=== PATIENT | male | born 1995 | race Caucasian/White ===

== ENCOUNTER 2018-04-21 09:09 | Emergency (ER) | payer SELFPAY ==
[2018-04-21 10:01] LABS: Basophils # (Auto) 0.1 K/mm3 (0.0-0.1); Basophils % (Auto) 0.6 % (0.0-1.8); Eosinophils % (Auto) 0.3 % (0.0-4.3); Hemoglobin 16.3 gm/dl (11.8-15.2); Lymphocytes % (Auto) 18.5 % (13.4-35.0); Mean Corpuscular HGB Conc 34 % (32-34); Mean Corpuscular Hemoglobin 31 pg (28-32); Mean Corpuscular Volume 90 fl (84-94); Monocytes # (Auto) 1.2 K/mm3 (0.0-0.8); Monocytes % (Auto) 10.9 % (0.0-7.3); Platelet Count 306 K/mm3 (140-440); Red Blood Count 5.34 M/mm3 (3.65-5.03); Red Cell Distribution Width 12.9 % (13.2-15.2)
[2018-04-21] MEDS ORDERED: GEODON IM ONE (10:10)
[2018-04-21] MEDS ORDERED: WATER FOR INJ (PF) ONE ×2 (10:10→21:56)
--- NOTE | 2018-04-21 10:17 | Emergency Department Report ---
ED Psych HPI - General Chief Complaint: Psych Stated Complaint: BI-POLAR Time Seen by Provider: 04/21/18 10:12 Source: EMS Mode of arrival: Stretcher - History of Present Illness Initial Comments: Patient brought in by EMS for psychiatric evaluation, with symptoms of acute psychosis. No prior history is obtainable, no family members are with patient, and although patient is awake, in no acute distress, he is speaking nonstop and a complete word salad, makes no semblance of appropriate response to any questions, and no meaningful interview can be performed. No prior visits are available for review at this hospital, and there is insufficient information on which to conduct initial evaluation. Patient is clearly of altered mental status, likely psychotic, but will be evaluated for underlying organic illness, or causes of acute dementia, including infectious origin. Laboratory evaluation has been ordered, and patient was sedated for purposes of comfort, and ability to perform further secondary evaluation and exam. - Related Data Allergies Allergy/AdvReac Type Severity Reaction Status Date / Time Unable to Assess Allergy Unverified 04/21/18 09:21 ED Review of Systems ROS: Stated complaint: BI-POLAR Other details as noted in HPI ED Past Medical Hx - Past Medical History Previous Medical History?: No Additional medical history: unattainable - Surgical History Past Surgical History?: No Additional Surgical History: unattainable - Social History Smoking Status: Unknown if ever smoked ED Physical Exam - General Limitations: Other General appearance: alert, other (physically and emotionally agitated at arrival , much more compliant and organized after sedation) - Head Head exam: Present: atraumatic, normocephalic - Eye Eye exam: Present: PERRL, EOMI (conjugate). Absent: nystagmus - ENT ENT exam: Present: mucous membranes moist - Neck Neck exam: Present: normal inspection, full ROM. Absent: tenderness, meningismus - Respiratory Respiratory exam: Present: normal lung sounds bilaterally. Absent: respiratory distress, wheezes, rales, rhonchi, chest wall tenderness - Cardiovascular Cardiovascular Exam: Present: regular rate, normal heart sounds - GI/Abdominal GI/Abdominal exam: Present: soft, normal bowel sounds. Absent: tenderness - Rectal Rectal exam: Present: deferred - Extremities Exam Extremities exam: Present: normal inspection, full ROM. Absent: tenderness, pedal edema - Back Exam Back exam: Present: normal inspection - Neurological Exam Neurological exam: Present: alert, other (acutely psychotic, moves all extremities well, normal balance, normal gait). Absent: oriented X3 - Psychiatric Psychiatric exam: Present: manic (agitated, very tangential, pressured speech, word salad, no relationship to interviewer questions) - Skin Skin exam: Present: warm, dry, intact ED Course Vital Signs 04/21/18 04/21/18 09:21 10:33 Temperature 37.7 C H 37.5 C Pulse Rate 105 H 79 Respiratory 17 20 Rate Blood Pressure 123/90 Blood Pressure 130/75 [Left] O2 Sat by Pulse 96 100 Oximetry - Reevaluation(s) Reevaluation #1: 04/21/18 14:29 Patient is resting comfortably, and is currently asymptomatic, and appears much calmer, and during physical examination, is able to converse in a much more arise fashion, known his name, knows that he is in a hospital, gives a very vague and somewhat evasive history of immediately preceding events, which is not understandable to me, but knows it is April, reports the year is 2018, and knows that [facility] is the president. This is a significant improvement from arrival, in which he was so disoriented, that he could not respond in any meaningful way. Physical examination is unremarkable, essentially normal and all system and organ areas, but laboratory evaluation shows a significant elevation of creatine kinase, 1344, but urine is normal. He could be in early stages of rhabdomyolysis, but my baseline suspicion is that he is simply dehydrated, has probably been using some drugs of abuse, and that with his agitation, has produced a mild CK increase. Nonetheless, patient although been physically stable, is not yet medically cleared for psychiatric placement, as I would like to see a repeat stable creatine kinase without signs of kidney injury, or spillage of myoglobin. Patient will have a repeat urinalysis and creatine kinase at 1800 hrs., and results will be followed by Dr. Abel Dumas. ED Medical Decision Making - Lab Data Result diagrams: 04/21/18 09:37 04/21/18 09:37 Initial creatine kinase elevated at 1300, baseline urinalysis is negative for spillage of hemoglobin myoglobin. Critical care attestation.: If time is entered above; I have spent that time in minutes in the direct care of this critically ill patient, excluding procedure time. ED Disposition Condition: Stable Referrals: PRIMARY CARE, [Primary Care Provider] - 3-5 Days
[2018-04-21 10:20] LABS: Calcium 9.4 mg/dL (8.4-10.2)
[2018-04-21] MEDS: GEODON IM PRN ×2 (10:27→22:33)
[2018-04-21] MEDS ORDERED: ATIVAN ONE (12:36)
[2018-04-21] MEDS: ATIVAN IM PRN (12:43)
[2018-04-21 13:53] LABS: Mucus,Urine FEW /HPF; RBC,Urine < 1.0 /HPF (0.0-6.0)
[2018-04-21] MEDS ORDERED: NACL 0.9% 1000 ML 1,000 ML IV ONE (13:54)
[2018-04-21] MEDS ORDERED: TYLENOL PO ONE (13:55)
[2018-04-21 13:58] LABS: Bilirubin,Urine NEG (Negative); Blood,Urine NEG (Negative); Color,Urine Yellow (Yellow); Protein,Urine <15 mg/dL mg/dL (Negative); Urobilinogen,Urine < 2.0 mg/dL (<2.0)
[2018-04-21 14:01] LABS: Amphetamine Screen,Urine PRESUMPTIVE NEGATIVE; Benzodiazepines Screen,Urine PRESUMPTIVE NEGATIVE; Cocaine Screen,Urine PRESUMPTIVE NEGATIVE; Methadone Screen,Urine PRESUMPTIVE NEGATIVE; Opiate Screen,Urine PRESUMPTIVE NEGATIVE
[2018-04-21 14:21] LABS: Cannabinoid Screen,Urine PRESUMPTIVE POSITIVE
[2018-04-21 14:59] LABS: INR 0.87 (0.87-1.13)
[2018-04-21 15:00] LABS: Partial Thromboplastin Time 36.1 Sec. (24.2-36.6)
[2018-04-21 15:10] LABS: Alanine Aminotransferase 19 units/L (7-56); Albumin 4.7 g/dL (3.9-5); BUN/Creatinine Ratio 13; Blood Urea Nitrogen 17 mg/dL (9-20); Calcium 9.7 mg/dL (8.4-10.2); Hemolysis Index 7
--- NOTE | 2018-04-21 16:23 | Consultation ---
History of Present Illness - Reason for Consult Consult date: 04/21/18 Reason for consult: Psychiatric Consult Requesting physician: ERICKA PURDY - Chief Complaint Chief complaint: ALTERED MENTAL STATUS - History of Present Psychiatric Illness 22-year-old male was brought to the emergency room via ambulance, after he presented in altered mental status. No previous information is available for this patient and there is also no contact information for any family members. As per his records, at the time of his initial presentation he was disorganized and presented with a word salad. When I met him today, he had received IM Geodon prn medication and so he appeared somewhat tired. However he appeared to be trying to stay awake, and also was moving around in the room, and needed redirection to sit on the bed, since he appeared to be off balance. During the brief interaction with me, patient did appear to be responding to internal stimuli. He also presented as delusional with paranoid undertones. Patient stated "you are covering your right side, which means something bad will happen ". He was a poor historian and was unable to give any further information, with regards to any suicidal or homicidal thoughts or any auditory or visual hallucinations. He did appear to be presenting with flight of ideas and loose associations. Medications and Allergies Allergies Allergy/AdvReac Type Severity Reaction Status Date / Time Unable to Assess Allergy Unverified 04/21/18 09:21 Active Meds: Active Medications Lorazepam (Ativan) 2 mg IM Q1H PRN PRN Reason: Agitation Last Admin: 04/21/18 12:43 Dose: 2 mg Ziprasidone (Geodon) 20 mg IM BID PRN PRN Reason: Agitation Last Admin: 04/21/18 10:27 Dose: 20 mg Past psychiatric history - Past Medical History Past Medical History: other (elevated CK) - past Psychiatric treatment and history psychiatric treatment history: Patient was unable to provide any information about his past psychiatric history at this time. - Social History Social history: lives with family (patient stated that he lives with his grandmother.) Mental Status Exam - Vital signs Last Vital Signs Temp 99.5 F 04/21/18 10:33 Pulse 79 04/21/18 10:33 Resp 20 04/21/18 10:33 BP 130/75 04/21/18 10:33 Pulse Ox 100 04/21/18 10:33 - Exam Orientation: place Affect: agitated Mood: other (dysphoric) Thought content: delusions, paranoia Thought Process: Loose Associations, Flight of Ideas, Disorganized Perceptions: other (patient did not answer) Speech: slurring Concentration: distractible, unable to pay attention Motor activity: restless Level of consciousness: sedated Sleep Symptoms: Difficulty Falling Asleep Interaction: irritable Results Result Diagrams: 04/21/18 09:37 04/21/18 14:34 Abnormal lab results 04/21/18 04/21/18 04/21/18 Range/Units 09:37 09:37 09:37 RBC 5.34 H (3.65-5.03) M/mm3 Hgb 16.3 H (11.8-15.2) gm/dl Hct 48.0 H (35.5-45.6) % RDW 12.9 L (13.2-15.2) % [place] % (Auto) 10.9 H (0.0-7.3) % [place] # 1.2 H (0.0-0.8) K/mm3 Glucose (75-100) mg/dL AST (5-40) units/L Total Creatine Kinase (55-170) units/L Salicylates < 0.3 L (2.8-20.0) mg/dL Acetaminophen < 5.0 L (10.0-30.0) ug/mL 04/21/18 04/21/18 Range/Units 09:37 14:34 RBC (3.65-5.03) M/mm3 Hgb (11.8-15.2) gm/dl Hct (35.5-45.6) % RDW (13.2-15.2) % [place] % (Auto) (0.0-7.3) % [place] # (0.0-0.8) K/mm3 Glucose 124 H (75-100) mg/dL AST 47 H (5-40) units/L Total Creatine Kinase 1344 H (55-170) units/L Salicylates (2.8-20.0) mg/dL Acetaminophen (10.0-30.0) ug/mL All other labs normal. Assessment and Plan Assessment and plan: Assessment: 1) psychosis unspecified Plan: 1) Patient will continue on 1013 and he does not appear to be capable of taking care of himself at this time and also presenting with psychotic symptoms. 2) Attempts will be made to obtain collateral information with regards to the patient's baseline. 3) Will start patient on Zyprexa 5 mg at bedtime to help with most ablation and psychosis. 4) Will closely monitor patient's CK levels which is elevated and at 1344. If they continue elevated, we'll discontinue his antipsychotic medication. 5) Will continue to follow the patient.
[2018-04-21 18:01] LABS: Bilirubin,Urine NEG (Negative); Blood,Urine NEG (Negative); Color,Urine Yellow (Yellow); Mucus,Urine FEW /HPF; Protein,Urine <15 mg/dL mg/dL (Negative); RBC,Urine < 1.0 /HPF (0.0-6.0); Urobilinogen,Urine < 2.0 mg/dL (<2.0)
[2018-04-22 18:11] LABS: BUN/Creatinine Ratio 11; Blood Urea Nitrogen 9 mg/dL (9-20); Calcium 9.9 mg/dL (8.4-10.2); Hemolysis Index 7
--- NOTE | 2018-04-22 19:12 | Event Note ---
Date: 04/22/18 Laboratory studies are reviewed. Creatinine kinase is down trending. Patient' s creatinine kinase level does not meet definition criteria of rhabdomyolysis. His renal function remains intact, and his muscular compartments are soft. His creatinine kinase will continue to down trend on its own, by merit of normal expected human physiology and copious oral hydration which we will encourage. At this point in time, there does not appear to be an immediate medical contraindication to psychiatric admission, evaluation and consultation. I would avoid medications such as Haldol and Geodon, which may predispose to elevations of creatinine kinase levels. Vital Signs 04/21/18 04/21/18 04/21/18 09:21 10:33 21:40 Temperature 99.8 F H 99.5 F 97.5 F L Pulse Rate 105 H 79 95 H Respiratory 17 20 20 Rate Blood Pressure 123/90 Blood Pressure 130/75 127/95 [Left] O2 Sat by Pulse 96 100 99 Oximetry 04/22/18 04/22/18 05:59 08:12 Temperature 97.5 F L 98.4 F Pulse Rate 90 Respiratory 16 Rate Blood Pressure Blood Pressure 130/82 [Left] O2 Sat by Pulse 99 Oximetry Lab Results 04/21/18 04/21/18 04/21/18 Range/Units 09:37 09:37 09:37 WBC (4.5-11.0) K/mm3 RBC (3.65-5.03) M/mm3 Hgb (11.8-15.2) gm/dl Hct (35.5-45.6) % MCV (84-94) fl MCH (28-32) pg MCHC (32-34) % RDW (13.2-15.2) % Plt Count (140-440) K/mm3 Lymph % (Auto) (13.4-35.0) % [place] % (Auto) (0.0-7.3) % Eos % (Auto) (0.0-4.3) % Baso % (Auto) (0.0-1.8) % Lymph # (1.2-5.4) K/mm3 [place] # (0.0-0.8) K/mm3 Eos # (0.0-0.4) K/mm3 Baso # (0.0-0.1) K/mm3 Seg Neutrophils % (40.0-70.0) % Seg Neutrophils # (1.8-7.7) K/mm3 PT (12.2-14.9) Sec. INR (0.87-1.13) APTT (24.2-36.6) Sec. Sodium 138 (137-145) mmol/L Potassium 4.3 (3.6-5.0) mmol/L Chloride 98.9 (98-107) mmol/L Carbon Dioxide 25 (22-30) mmol/L Anion Gap 18 mmol/L BUN 20 (9-20) mg/dL Creatinine 1.5 (0.8-1.5) mg/dL Estimated GFR 59 ml/min BUN/Creatinine Ratio 13 % Glucose 88 (75-100) mg/dL Lactic Acid (0.7-2.0) mmol/L Calcium 9.4 (8.4-10.2) mg/dL Total Bilirubin (0.1-1.2) mg/dL AST (5-40) units/L ALT (7-56) units/L Alkaline Phosphatase (35-129) units/L Total Creatine Kinase (55-170) units/L Troponin T (0.00-0.029) ng/mL Total Protein (6.3-8.2) g/dL Albumin (3.9-5) g/dL Albumin/Globulin Ratio % TSH (0.270-4.200) mlU/mL Free T4 (0.76-1.46) ng/dL Urine Color (Yellow) Urine Turbidity (Clear) Urine pH (5.0-7.0) Ur Specific [place] (1.003-1.030) Urine Protein (Negative) mg/dL Urine Glucose (UA) (Negative) mg/dL Urine Ketones (Negative) mg/dL Urine Blood (Negative) Urine Nitrite (Negative) Ur Reducing Substances Urine Bilirubin (Negative) Urine Ictotest Urine Urobilinogen (<2.0) mg/dL Ur Leukocyte Esterase (Negative) Urine WBC (Auto) (0.0-6.0) /HPF Urine RBC (Auto) (0.0-6.0) /HPF Urine Mucus /HPF Salicylates < 0.3 L (2.8-20.0) mg/dL Urine Opiates Screen Urine Methadone Screen Acetaminophen < 5.0 L (10.0-30.0) ug/mL Ur Barbiturates Screen Ur Phencyclidine Scrn Ur Amphetamines Screen U Benzodiazepines Scrn Urine Cocaine Screen U Marijuana (THC) Screen Drugs of Abuse Note Plasma/Serum Alcohol (0-0.07) % 04/21/18 04/21/18 04/21/18 Range/Units 09:37 09:37 09:37 WBC 10.7 (4.5-11.0) K/mm3 RBC 5.34 H (3.65-5.03) M/mm3 Hgb 16.3 H (11.8-15.2) gm/dl Hct 48.0 H (35.5-45.6) % MCV 90 (84-94) fl MCH 31 (28-32) pg MCHC 34 (32-34) % RDW 12.9 L (13.2-15.2) % Plt Count 306 (140-440) K/mm3 Lymph % (Auto) 18.5 (13.4-35.0) % [place] % (Auto) 10.9 H (0.0-7.3) % Eos % (Auto) 0.3 (0.0-4.3) % Baso % (Auto) 0.6 (0.0-1.8) % Lymph # 2.0 (1.2-5.4) K/mm3 [place] # 1.2 H (0.0-0.8) K/mm3 Eos # 0.0 (0.0-0.4) K/mm3 Baso # 0.1 (0.0-0.1) K/mm3 Seg Neutrophils % 69.7 (40.0-70.0) % Seg Neutrophils # 7.5 (1.8-7.7) K/mm3 PT (12.2-14.9) Sec. INR (0.87-1.13) APTT (24.2-36.6) Sec. Sodium (137-145) mmol/L Potassium (3.6-5.0) mmol/L Chloride (98-107) mmol/L Carbon Dioxide (22-30) mmol/L Anion Gap mmol/L BUN (9-20) mg/dL Creatinine (0.8-1.5) mg/dL Estimated GFR ml/min BUN/Creatinine Ratio % Glucose (75-100) mg/dL Lactic Acid (0.7-2.0) mmol/L Calcium (8.4-10.2) mg/dL Total Bilirubin (0.1-1.2) mg/dL AST (5-40) units/L ALT (7-56) units/L Alkaline Phosphatase (35-129) units/L Total Creatine Kinase 1344 H (55-170) units/L Troponin T < 0.010 (0.00-0.029) ng/mL Total Protein (6.3-8.2) g/dL Albumin (3.9-5) g/dL Albumin/Globulin Ratio % TSH (0.270-4.200) mlU/mL Free T4 (0.76-1.46) ng/dL Urine Color (Yellow) Urine Turbidity (Clear) Urine pH (5.0-7.0) Ur Specific [place] (1.003-1.030) Urine Protein (Negative) mg/dL Urine Glucose (UA) (Negative) mg/dL Urine Ketones (Negative) mg/dL Urine Blood (Negative) Urine Nitrite (Negative) Ur Reducing Substances Urine Bilirubin (Negative) Urine Ictotest Urine Urobilinogen (<2.0) mg/dL Ur Leukocyte Esterase (Negative) Urine WBC (Auto) (0.0-6.0) /HPF Urine RBC (Auto) (0.0-6.0) /HPF Urine Mucus /HPF Salicylates (2.8-20.0) mg/dL Urine Opiates Screen Urine Methadone Screen Acetaminophen (10.0-30.0) ug/mL Ur Barbiturates Screen Ur Phencyclidine Scrn Ur Amphetamines Screen U Benzodiazepines Scrn Urine Cocaine Screen U Marijuana (THC) Screen Drugs of Abuse Note Plasma/Serum Alcohol < 0.01 (0-0.07) % 04/21/18 04/21/18 04/21/18 Range/Units 09:37 09:37 10:30 WBC (4.5-11.0) K/mm3 RBC (3.65-5.03) M/mm3 Hgb (11.8-15.2) gm/dl Hct (35.5-45.6) % MCV (84-94) fl MCH (28-32) pg MCHC (32-34) % RDW (13.2-15.2) % Plt Count (140-440) K/mm3 Lymph % (Auto) (13.4-35.0) % [place] % (Auto) (0.0-7.3) % Eos % (Auto) (0.0-4.3) % Baso % (Auto) (0.0-1.8) % Lymph # (1.2-5.4) K/mm3 [place] # (0.0-0.8) K/mm3 Eos # (0.0-0.4) K/mm3 Baso # (0.0-0.1) K/mm3 Seg Neutrophils % (40.0-70.0) % Seg Neutrophils # (1.8-7.7) K/mm3 PT (12.2-14.9) Sec. INR (0.87-1.13) APTT (24.2-36.6) Sec. Sodium (137-145) mmol/L Potassium (3.6-5.0) mmol/L Chloride (98-107) mmol/L Carbon Dioxide (22-30) mmol/L Anion Gap mmol/L BUN (9-20) mg/dL Creatinine (0.8-1.5) mg/dL Estimated GFR ml/min BUN/Creatinine Ratio % Glucose (75-100) mg/dL Lactic Acid 1.00 (0.7-2.0) mmol/L Calcium (8.4-10.2) mg/dL Total Bilirubin (0.1-1.2) mg/dL AST (5-40) units/L ALT (7-56) units/L Alkaline Phosphatase (35-129) units/L Total Creatine Kinase (55-170) units/L Troponin T (0.00-0.029) ng/mL Total Protein (6.3-8.2) g/dL Albumin (3.9-5) g/dL Albumin/Globulin Ratio % TSH 0.875 (0.270-4.200) mlU/mL Free T4 1.45 (0.76-1.46) ng/dL Urine Color (Yellow) Urine Turbidity (Clear) Urine pH (5.0-7.0) Ur Specific [place] (1.003-1.030) Urine Protein (Negative) mg/dL Urine Glucose (UA) (Negative) mg/dL Urine Ketones (Negative) mg/dL Urine Blood (Negative) Urine Nitrite (Negative) Ur Reducing Substances Urine Bilirubin (Negative) Urine Ictotest Urine Urobilinogen (<2.0) mg/dL Ur Leukocyte Esterase (Negative) Urine WBC (Auto) (0.0-6.0) /HPF Urine RBC (Auto) (0.0-6.0) /HPF Urine Mucus /HPF Salicylates (2.8-20.0) mg/dL Urine Opiates Screen Urine Methadone Screen Acetaminophen (10.0-30.0) ug/mL Ur Barbiturates Screen Ur Phencyclidine Scrn Ur Amphetamines Screen U Benzodiazepines Scrn Urine Cocaine Screen U Marijuana (THC) Screen Drugs of Abuse Note Plasma/Serum Alcohol (0-0.07) % 04/21/18 04/21/18 04/21/18 Range/Units 13:36 13:36 14:34 WBC (4.5-11.0) K/mm3 RBC (3.65-5.03) M/mm3 Hgb (11.8-15.2) gm/dl Hct (35.5-45.6) % MCV (84-94) fl MCH (28-32) pg MCHC (32-34) % RDW (13.2-15.2) % Plt Count (140-440) K/mm3 Lymph % (Auto) (13.4-35.0) % [place] % (Auto) (0.0-7.3) % Eos % (Auto) (0.0-4.3) % Baso % (Auto) (0.0-1.8) % Lymph # (1.2-5.4) K/mm3 [place] # (0.0-0.8) K/mm3 Eos # (0.0-0.4) K/mm3 Baso # (0.0-0.1) K/mm3 Seg Neutrophils % (40.0-70.0) % Seg Neutrophils # (1.8-7.7) K/mm3 PT 12.2 (12.2-14.9) Sec. INR 0.87 (0.87-1.13) APTT 36.1 (24.2-36.6) Sec. Sodium (137-145) mmol/L Potassium (3.6-5.0) mmol/L Chloride (98-107) mmol/L Carbon Dioxide (22-30) mmol/L Anion Gap mmol/L BUN (9-20) mg/dL Creatinine (0.8-1.5) mg/dL Estimated GFR ml/min BUN/Creatinine Ratio % Glucose (75-100) mg/dL Lactic Acid (0.7-2.0) mmol/L Calcium (8.4-10.2) mg/dL Total Bilirubin (0.1-1.2) mg/dL AST (5-40) units/L ALT (7-56) units/L Alkaline Phosphatase (35-129) units/L Total Creatine Kinase (55-170) units/L Troponin T (0.00-0.029) ng/mL Total Protein (6.3-8.2) g/dL Albumin (3.9-5) g/dL Albumin/Globulin Ratio % TSH (0.270-4.200) mlU/mL Free T4 (0.76-1.46) ng/dL Urine Color Yellow (Yellow) Urine Turbidity Clear (Clear) Urine pH 5.0 (5.0-7.0) Ur Specific [place] 1.013 (1.003-1.030) Urine Protein <15 mg/dl (Negative) mg/dL Urine Glucose (UA) Neg (Negative) mg/dL Urine Ketones Tr (Negative) mg/dL Urine Blood Neg (Negative) Urine Nitrite Neg (Negative) Ur Reducing Substances Not Reportable Urine Bilirubin Neg (Negative) Urine Ictotest Not Reportable Urine Urobilinogen < 2.0 (<2.0) mg/dL Ur Leukocyte Esterase Neg (Negative) Urine WBC (Auto) 1.0 (0.0-6.0) /HPF Urine RBC (Auto) < 1.0 (0.0-6.0) /HPF Urine Mucus Few /HPF Salicylates (2.8-20.0) mg/dL Urine Opiates Screen Presumptive negative Urine Methadone Screen Presumptive negative Acetaminophen (10.0-30.0) ug/mL Ur Barbiturates Screen Presumptive negative Ur Phencyclidine Scrn Presumptive negative Ur Amphetamines Screen Presumptive negative U Benzodiazepines Scrn Presumptive negative Urine Cocaine Screen Presumptive negative U Marijuana (THC) Screen Presumptive positive Drugs of Abuse Note Disclamer Plasma/Serum Alcohol (0-0.07) % 04/21/18 04/21/18 04/21/18 Range/Units 14:34 17:01 Unknown WBC (4.5-11.0) K/mm3 RBC (3.65-5.03) M/mm3 Hgb (11.8-15.2) gm/dl Hct (35.5-45.6) % MCV (84-94) fl MCH (28-32) pg MCHC (32-34) % RDW (13.2-15.2) % Plt Count (140-440) K/mm3 Lymph % (Auto) (13.4-35.0) % [place] % (Auto) (0.0-7.3) % Eos % (Auto) (0.0-4.3) % Baso % (Auto) (0.0-1.8) % Lymph # (1.2-5.4) K/mm3 [place] # (0.0-0.8) K/mm3 Eos # (0.0-0.4) K/mm3 Baso # (0.0-0.1) K/mm3 Seg Neutrophils % (40.0-70.0) % Seg Neutrophils # (1.8-7.7) K/mm3 PT (12.2-14.9) Sec. INR (0.87-1.13) APTT (24.2-36.6) Sec. Sodium 138 (137-145) mmol/L Potassium 4.2 (3.6-5.0) mmol/L Chloride 98.8 (98-107) mmol/L Carbon Dioxide 26 (22-30) mmol/L Anion Gap 17 mmol/L BUN 17 (9-20) mg/dL Creatinine 1.3 (0.8-1.5) mg/dL Estimated GFR > 60 ml/min BUN/Creatinine Ratio 13 % Glucose 124 H (75-100) mg/dL Lactic Acid (0.7-2.0) mmol/L Calcium 9.7 (8.4-10.2) mg/dL Total Bilirubin 0.60 (0.1-1.2) mg/dL AST 47 H (5-40) units/L ALT 19 (7-56) units/L Alkaline Phosphatase 88 (35-129) units/L Total Creatine Kinase 1553 H (55-170) units/L Troponin T (0.00-0.029) ng/mL Total Protein 7.7 (6.3-8.2) g/dL Albumin 4.7 (3.9-5) g/dL Albumin/Globulin Ratio 1.6 % TSH (0.270-4.200) mlU/mL Free T4 (0.76-1.46) ng/dL Urine Color Yellow (Yellow) Urine Turbidity Clear (Clear) Urine pH 5.0 (5.0-7.0) Ur Specific [place] 1.030 (1.003-1.030) Urine Protein <15 mg/dl (Negative) mg/dL Urine Glucose (UA) Neg (Negative) mg/dL Urine Ketones Tr (Negative) mg/dL Urine Blood Neg (Negative) Urine Nitrite Neg (Negative) Ur Reducing Substances Urine Bilirubin Neg (Negative) Urine Ictotest Urine Urobilinogen < 2.0 (<2.0) mg/dL Ur Leukocyte Esterase Neg (Negative) Urine WBC (Auto) 1.0 (0.0-6.0) /HPF Urine RBC (Auto) < 1.0 (0.0-6.0) /HPF Urine Mucus Few /HPF Salicylates (2.8-20.0) mg/dL Urine Opiates Screen Urine Methadone Screen Acetaminophen (10.0-30.0) ug/mL Ur Barbiturates Screen Ur Phencyclidine Scrn Ur Amphetamines Screen U Benzodiazepines Scrn Urine Cocaine Screen U Marijuana (THC) Screen Drugs of Abuse Note Plasma/Serum Alcohol (0-0.07) % 04/22/18 04/22/18 Range/Units 15:06 17:17 WBC (4.5-11.0) K/mm3 RBC (3.65-5.03) M/mm3 Hgb (11.8-15.2) gm/dl Hct (35.5-45.6) % MCV (84-94) fl MCH (28-32) pg MCHC (32-34) % RDW (13.2-15.2) % Plt Count (140-440) K/mm3 Lymph % (Auto) (13.4-35.0) % [place] % (Auto) (0.0-7.3) % Eos % (Auto) (0.0-4.3) % Baso % (Auto) (0.0-1.8) % Lymph # (1.2-5.4) K/mm3 [place] # (0.0-0.8) K/mm3 Eos # (0.0-0.4) K/mm3 Baso # (0.0-0.1) K/mm3 Seg Neutrophils % (40.0-70.0) % Seg Neutrophils # (1.8-7.7) K/mm3 PT (12.2-14.9) Sec. INR (0.87-1.13) APTT (24.2-36.6) Sec. Sodium 138 (137-145) mmol/L Potassium 4.6 (3.6-5.0) mmol/L Chloride 99.6 (98-107) mmol/L Carbon Dioxide 27 (22-30) mmol/L Anion Gap 16 mmol/L BUN 9 (9-20) mg/dL Creatinine 0.8 (0.8-1.5) mg/dL Estimated GFR > 60 ml/min BUN/Creatinine Ratio 11 % Glucose 101 H (75-100) mg/dL Lactic Acid (0.7-2.0) mmol/L Calcium 9.9 (8.4-10.2) mg/dL Total Bilirubin (0.1-1.2) mg/dL AST (5-40) units/L ALT (7-56) units/L Alkaline Phosphatase (35-129) units/L Total Creatine Kinase 1884 H 1784 H (55-170) units/L Troponin T (0.00-0.029) ng/mL Total Protein (6.3-8.2) g/dL Albumin (3.9-5) g/dL Albumin/Globulin Ratio % TSH (0.270-4.200) mlU/mL Free T4 (0.76-1.46) ng/dL Urine Color (Yellow) Urine Turbidity (Clear) Urine pH (5.0-7.0) Ur Specific [place] (1.003-1.030) Urine Protein (Negative) mg/dL Urine Glucose (UA) (Negative) mg/dL Urine Ketones (Negative) mg/dL Urine Blood (Negative) Urine Nitrite (Negative) Ur Reducing Substances Urine Bilirubin (Negative) Urine Ictotest Urine Urobilinogen (<2.0) mg/dL Ur Leukocyte Esterase (Negative) Urine WBC (Auto) (0.0-6.0) /HPF Urine RBC (Auto) (0.0-6.0) /HPF Urine Mucus /HPF Salicylates (2.8-20.0) mg/dL Urine Opiates Screen Urine Methadone Screen Acetaminophen (10.0-30.0) ug/mL Ur Barbiturates Screen Ur Phencyclidine Scrn Ur Amphetamines Screen U Benzodiazepines Scrn Urine Cocaine Screen U Marijuana (THC) Screen Drugs of Abuse Note Plasma/Serum Alcohol (0-0.07) %
--- NOTE | 2018-04-23 15:33 | Progress Note ---
Subjective - Reason for Consult Consult date: 04/23/18 Reason for consult: follow up - Chief Complaint Chief complaint: "What" 22-year-old male was brought to the emergency room via ambulance, after he presented in altered mental status. No previous information is available for this patient and there is also no contact information for any family members. As per his records, at the time of his initial presentation he was disorganized and presented with a word salad. His current presentation is consistent with the report by Dr. Dean yesterday. Flight of ideas and loose associations present. He was walking around room, had loud and pressured speech, and at times was confrontational and suspicious. He was compliant with medications last night. Mental Status Exam - Vital signs Last Vital Signs Temp 99.2 F 04/23/18 10:00 Pulse 104 H 04/23/18 10:00 Resp 20 04/23/18 15:11 BP 140/87 04/23/18 10:00 Pulse Ox 100 04/23/18 15:11 - Exam Narrative exam: Orientation: person, place Affect: agitated Mood: agitated Thought content: delusions, paranoia Thought Process: Loose Associations, Flight of Ideas, Disorganized Perceptions: other (patient did not answer) Speech: loud Concentration: distractible, unable to pay attention Motor activity: restless Level of consciousness: alert Sleep Symptoms: Difficulty Falling Asleep Interaction: irritable Assessment and Plan Impression 1) psychosis unspecified Manic symptoms are present. Plan: 1) Patient will continue on 1013 and he does not appear to be capable of taking care of himself at this time and also presenting with psychotic symptoms. 2) Attempts will be made to obtain collateral information with regards to the patient's baseline. 3) continue zyprexa 5mg hs for psychosis. 4) Event note by Dr. Jamison was read. CK is trending upward. Zyprexa will not be increased at this time. The ER attending will address non psychiatric needs, such as elevated ck. 5) Will continue to follow the patient. 6) Add depakote 500mg bid for manic symptoms. 7) plan for valproic acid level in 5 days.
[2018-04-23] MEDS ORDERED: WATER FOR INJ (PF) ONE (21:54)
[2018-04-23] MEDS: ATIVAN IM PRN (22:45)
[2018-04-23] MEDS: GEODON IM PRN (22:45)
[2018-04-24] MEDS: ATIVAN IM PRN (05:57)
--- NOTE | 2018-04-24 18:33 | Progress Note ---
Subjective - Reason for Consult Consult date: 04/24/18 Reason for consult: follow up - Chief Complaint Chief complaint: "hey" 22-year-old male was brought to the emergency room via ambulance, after he presented in altered mental status. No previous information is available for this patient and there is also no contact information for any family members. As per his records, at the time of his initial presentation he was disorganized and presented with a word salad. He has been sitting in the angulo talking with peers. He was guarded and suspicious of PHYSICIAN PEDIATRICIAN's questions. He states a marked vehicle came to his house and then could not describe how he ended up in the ER. He states he was at [facility] in [place], where he participated in groups. He is eating and drinking fluids. He was compliant with medications, depakote and zyprexa. Mental Status Exam - Vital signs Last Vital Signs Temp 97.4 F L 04/24/18 12:55 Pulse 100 H 04/24/18 12:55 Resp 18 04/24/18 12:55 BP 145/87 04/24/18 12:55 Pulse Ox 98 04/24/18 12:55 - Exam Narrative exam: Orientation: person, place Affect: agitated Mood: agitated Thought content: delusions, paranoia Thought Process: Loose Associations Perceptions: other (patient did not answer) Speech: loud Concentration: distractible, Level of consciousness: alert Sleep Symptoms: Difficulty Falling Asleep Interaction: irritable Assessment and Plan Impression 1) psychosis unspecified Manic symptoms are present. Plan: 1) Patient will continue on 1013 and he does not appear to be capable of taking care of himself at this time and also presenting with psychotic symptoms. 2) Attempts will be made to obtain collateral information with regards to the patient's baseline. 3) continue zyprexa 5mg hs for psychosis. 4) Event note by Dr. Jamison 04/22/18 was read yesterday. CK is trending upward at that time. Zyprexa will not be increased at this time. The ER attending will address non psychiatric needs, such as elevated ck. 5) Will continue to follow the patient. 6) Continue depakote 500mg bid for manic symptoms. 7) plan for valproic acid level in 4 days.
[2018-04-25 08:54] LABS: Lipase 13 units/L (13-60)
--- NOTE | 2018-04-25 12:00 | Progress Note ---
Subjective - Reason for Consult Consult date: 04/25/18 Reason for consult: Psychiatry Follow-up - Chief Complaint Chief complaint: "Hello" 22-year-old male was brought to the emergency room via ambulance for AMS. Today the patient is cooperative, but hyper verbal during the assessment. He was tangent during the interview and had to be redirected several times to keep him on topic. His answers to some questions are not logical. He denies SI/HI's and AVH's. No indications of side effects of his medications. Mental Status Exam - Vital signs Last Vital Signs Temp 97.4 F L 04/24/18 12:55 Pulse 100 H 04/24/18 12:55 Resp 18 04/24/18 12:55 BP 145/87 04/24/18 12:55 Pulse Ox 98 04/24/18 12:55 - Exam Narrative exam: MSE: Appearance: cooperative Behavior: regular eye contact Speech: regular rate and tone, hyper verbal Mood: "well" Affect: congruent to mood Thought Process: tangential Thought Content: denies SI/HI's and AVH's Motor Activity: sitting up in bed Cognition: A/O x 3 Insight: poor Judgment: poor Assessment and Plan Impression: Unspecified Psychosis with manic symptoms. Cannabis Use DO. Today the patient is cooperative, but hyper verbal during the assessment. DDx: Bipolar DO, R/O Substance Induced Psychosis Recommendation/Plan: Continue 1013 with placement to inpatient psy services. Continue Depakote 500 mg PO BID for mood/bebo and Zyprexa 5 mg PO HS for psychosis. Attempted to discuss possible metabolic side effects of Zyprexa with patient.
[2018-04-25] MEDS: GEODON IM PRN (16:03)
[2018-04-26] MEDS: ATIVAN IM PRN (08:41)
[2018-04-26] MEDS ORDERED: HALDOL IM PRN (10:18)
--- NOTE | 2018-04-26 10:30 | Progress Note ---
Subjective - Reason for Consult Consult date: 04/26/18 Reason for consult: Psychiatry Follow-up - Chief Complaint Chief complaint: "I should be able to leave" 22-year-old male was brought to the emergency room via ambulance for AMS. Today the patient is anxious and hyper verbal during the assessment. His thoughts are not logical with loose associations. He had to be redirected several times to keep him on topic. He denies SI/HI's and AVH's. No indications of side effects of his medications. Mental Status Exam - Vital signs Last Vital Signs Temp 98.6 F 04/25/18 21:00 Pulse 88 04/25/18 21:00 Resp 18 04/26/18 04:00 BP 128/82 04/25/18 21:00 Pulse Ox 99 04/26/18 04:00 - Exam Narrative exam: MSE: Appearance: anxious Behavior: regular eye contact Speech: regular rate and tone, hyper verbal Mood: euphoric Affect: congruent to mood Thought Process: tangential, loose associations Thought Content: denies SI/HI's and AVH's Motor Activity: sitting up in bed Cognition: A/O x 3 Insight: poor Judgment: poor Assessment and Plan Impression: Unspecified Psychosis with manic symptoms. Cannabis Use DO. Today the patient is anxious and hyper verbal during the assessment. DDx: Bipolar DO, R/O Substance Induced Psychosis Recommendation/Plan: Continue 1013 with placement to inpatient psy services. Continue Depakote 500 mg PO BID for mood/bebo and increase Zyprexa to 10 mg PO HS for psychosis. Start Vistaril 25 mg PO BID for anxiety. Attempted to discuss possible metabolic side effects of Zyprexa with patient.
[2018-04-26] MEDS: VISTARIL PO SCH ×2 (13:16→22:24)
[2018-04-27] MEDS: VISTARIL PO SCH (11:00)
[2018-04-27 13:36] VITALS: BP 116/66
== END 2018-04-27 13:23 ==
LOC: EEVIPCON 09:09 → ED 09:09
DX: F30.2 Manic episode, severe with psychotic symptoms (principal); R41.82 Altered mental status, unspecified; F12.10 Cannabis abuse, uncomplicated
CPT/HCPCS: 36415; 80048; 80053; 80307; 81001; 82140; 82150; 82550; 83690; 84439; 84443; 84484; 85025; 85610; 85730; 87040; 96360; 96372; 99285; G0480; J2060; J3486; J7030; 80320; Q0177